=== PATIENT | male | born 1980 | race Caucasian/White ===

== ENCOUNTER 2019-10-27 22:03 | Emergency (ER) | payer OTHER ==
[~2019-10-27] VITALS: Ht 180.3 cm; Wt 113.9 kg
[2019-10-27 22:10] VITALS: BP_SYST 140
[2019-10-27] MEDS ORDERED: NACL 0.9% 1,000 ML IV ONE (23:14)
[2019-10-27 23:48] LABS: BASOPHILS # (AUTO) 0.1 K/uL (0.0-0.2); BASOPHILS % (AUTO) 0.7 % (0.0-2.0); EOSINOPHILS # (AUTO) 0.1 K/uL (0.0-0.4); EOSINOPHILS % (AUTO) 1.4 % (0.0-4.0); HEMATOCRIT 44.9 % (36-54); HEMOGLOBIN 15.2 g/dL (14.0-18.0); LYMPHOCYTES # (AUTO) 4.2 K/uL (1.0-5.5); MEAN CORPUSCULAR HEMOGLOBIN 30 pg (27-31); MEAN CORPUSCULAR HGB CONC 34 % (32-36); MEAN CORPUSCULAR VOLUME 88 fL (79.0-98.0); MONOCYTES # (AUTO) 0.8 K/uL (0.0-1.0); NEUTROPHILS # (AUTO) 4.8 K/uL (1.8-7.7); NEUTROPHILS % (AUTO) 47.9 % (40.0-70.0); PLATELET COUNT (AUTO) 155 K/uL (130-430); RED BLOOD CELL COUNT(AUTO) 5.09 MIL/uL (4.2-6.2); RED CELL DISTRIBUTION WIDTH 13.1 % (9.0-15.0); WHITE BLOOD COUNT (AUTO) 10.1 K/uL (4.8-10.8)
[2019-10-27 23:56] LABS: BILIRUBIN,URINE NEGATIVE (NEGATIVE); BLOOD, URINE 2+ (NEGATIVE); CLARITY/URINE CLEAR (CLEAR); COLOR,URINE YELLOW (YELLOW); GLUCOSE,URINE 3+ (NEGATIVE); KETONES,URINE TRACE (NEGATIVE); LEUKOCYTE ESTERASE ,URINE NEGATIVE (NEGATIVE); NITRITE, URINE NEGATIVE (NEGATIVE); PH,URINE 5.5 (5.0-8.0); PROTEIN URINE NEGATIVE (NEGATIVE); UROBILINOGEN,URINE 0.2 (0.2-1.0)
[2019-10-28 00:02] LABS: ALBUMIN 3.7 g/dL (3.4-4.8); CALCIUM 8.3 mg/dL (8.4-11.0); CREATININE 1.24 mg/dL (0.55-1.30); POTASSIUM 3.7 mmol/L (3.5-5.1); TOTAL BILIRUBIN 0.7 mg/dL (0.0-1.0)
[2019-10-28 00:14] LABS: BACTERIA,URINE FEW /HPF (None Seen); WBC,URINE 0-3 /HPF (0-3)
[2019-10-28] MEDS ORDERED: INSULIN REGULAR, HUMAN 10 UNITS/0.1 ML INJ SUBCUT ONE (00:45)
[2019-10-28 01:11] VITALS: BP_SYST 123
== END 2019-10-28 01:11 | disposition home or self-care (01) ==
LOC: SED 22:03
DX: E11.65 Type 2 diabetes mellitus with hyperglycemia (principal); F17.290 Nicotine dependence, other tobacco product, uncomplicated
CPT/HCPCS: 36415; 80053; 81000; 82962; 83036; 85025; 96360; 96372; 99283; J7030; J1815

== ENCOUNTER 2021-05-24 20:41 | Emergency (ER) | payer OTHER ==
[~2021-05-24] VITALS: Ht 180.3 cm; Wt 95.3 kg
[2021-05-24 21:19] VITALS: BP_SYST 131
--- NOTE | 2021-05-24 21:20 | NUR ---
Patient triaged and placed in waiting room. VSS and patient appears in no acute distress at this time. Accompanied by SELF, awaiting available bed, and MD notified of need for MSE.
--- NOTE | 2021-05-24 23:50 | NUR ---
DR. RUDOLPH AT BEDSIDE FOR MSE.
[2021-05-25] MEDS ORDERED: VANCOMYCIN HCL 1,000 MG in NS 250 ML IV ONE ×2
--- NOTE | 2021-05-25 00:05 | NUR ---
Patient to ER bed 3 to gown for evaluation. Side rails up. Report given to KIERSTEN FUCHS.
--- NOTE | 2021-05-25 00:07 | NUR ---
PATIENT BROUGHT IN COMPLAIING OF RASH TO LEFT ANTERIOR LEG X 3 DAYS. DENIES ANY TRAUMA TO SITE. REDNESS NOTED. REPORTS HAVING FEVER 2 DAYS AGO. ACCUCHECK 520. NO OTHER COMPLAINTS/INJURIES PER PATIENT OR NOTED.
--- NOTE | 2021-05-25 00:10 | NUR ---
# 18 gauge angiocath placed to . Use of asceptic technique. Opsite placed over site. Blood return noted. Blood AND CULTURES for lab drawn from site. Flushed with 10 cc of normal saline. No evidence of infiltration noted. Patient tolerated well.
[2021-05-25] MEDS ORDERED: NACL 0.9% 1,000 ML IV ONE (00:30)
[2021-05-25 00:49] LABS: BASOPHILS # (AUTO) 0.1 K/uL (0.0-0.2); BASOPHILS % (AUTO) 0.7 % (0.0-2.0); EOSINOPHILS # (AUTO) 0.2 K/uL (0.0-0.4); HEMATOCRIT 44.7 % (36-54); HEMOGLOBIN 15.1 g/dL (14.0-18.0); LYMPHOCYTES # (AUTO) 3.3 K/uL (1.0-5.5); LYMPHOCYTES % (AUTO) 33.7 % (20.5-51.5); MEAN CORPUSCULAR HEMOGLOBIN 31 pg (27-31); MEAN CORPUSCULAR HGB CONC 34 % (32-36); MEAN CORPUSCULAR VOLUME 92 fL (79.0-98.0); MONOCYTES % (AUTO) 10.6 % (1.7-9.3); NEUTROPHILS # (AUTO) 5.1 K/uL (1.8-7.7); PLATELET COUNT (AUTO) 163 K/uL (130-430); RED BLOOD CELL COUNT(AUTO) 4.85 MIL/uL (4.2-6.2); RED CELL DISTRIBUTION WIDTH 12.9 % (9.0-15.0); WHITE BLOOD COUNT (AUTO) 9.7 K/uL (4.8-10.8)
[2021-05-25 00:53] LABS: ALANINE AMINOTRANSFERASE 28 U/L (12-78); ALBUMIN 3.5 g/dL (3.4-4.8); ANION GAP 6 (5-15); ASPARTATE AMINOTRANSFERASE 13 U/L (10-37); CALCIUM 9.2 mg/dL (8.4-11.0); CHLORIDE 99 mmol/L (98-107); CREATININE 1.03 mg/dL (0.55-1.30); POTASSIUM 4.2 mmol/L (3.5-5.1); SODIUM SERUM 135 mmol/L (136-145); TOTAL BILIRUBIN 0.4 mg/dL (0.0-1.0); UREA NITROGEN, BLOOD 20 mg/dL (8-21)
[2021-05-25 00:54] LABS: GFR AFRICAN AMERICAN 102 mL/min (>90)
[2021-05-25 00:55] LABS: GLUCOSE 491 mg/dL (70-99)
[2021-05-25] MEDS ORDERED: VANCOMYCIN HCL 500 MG/VIAL IV ONE (00:59)
[2021-05-25 01:01] LABS: ACETONE, SERUM NEGATIVE (NEGATIVE)
--- NOTE | 2021-05-25 01:12 | NUR ---
URINE COLLECTED AND SENT TO LAB
[2021-05-25] MEDS ORDERED: INSULIN REGULAR, HUMAN 10 UNITS/0.1 ML INJ IVP ONE (01:15)
[2021-05-25 02:10] LABS: BILIRUBIN,URINE NEGATIVE (NEGATIVE); BLOOD, URINE 2+ (NEGATIVE); COLOR,URINE YELLOW (YELLOW); GLUCOSE,URINE 3+ (NEGATIVE); KETONES,URINE NEGATIVE (NEGATIVE); LEUKOCYTE ESTERASE ,URINE NEGATIVE (NEGATIVE); NITRITE, URINE NEGATIVE (NEGATIVE); PROTEIN URINE NEGATIVE (NEGATIVE); UROBILINOGEN,URINE 0.2 (0.2-1.0)
[2021-05-25 02:14] LABS: CLARITY/URINE SLIGHTLY CLOUDY (CLEAR)
[2021-05-25 02:35] LABS: BACTERIA,URINE FEW /HPF (None Seen); WBC,URINE 0-3 /HPF (0-3)
--- NOTE | 2021-05-25 02:59 | NUR ---
Patient resting quietly. No acute distress noted. Vital signs within normal range.
--- NOTE | 2021-05-25 03:07 | NUR ---
IV ABX COMPLETED. PATIENT TOLERATED WELL. NOTIFIED. PATIENT PENDING DISCHARGE. REPORT GIVEN TO SHILA HAYES
[2021-05-25] MEDS ORDERED: SULF1TAB48 PO (03:22)
[2021-05-25 03:32] VITALS: BP_SYST 110
--- NOTE | 2021-05-25 03:33 | NUR ---
Patient given written and verbal discharge instructions and verbalizes understanding. DR. RONNI LIRA MD discussed with patient the results and treatment provided. Patient in stable condition. ID arm band removed. IV catheter removed intact and dressing applied, no active bleeding. Rx of BACTRIM given. Patient educated on pain management and to follow up with PMD. Pain Scale 0/10. Opportunity for questions provided and answered. Medication side effect fact sheet provided.
== END 2021-05-25 03:33 | disposition home or self-care (01) ==
LOC: SED 20:41
DX: L03.116 Cellulitis of left lower limb (principal); E11.9 Type 2 diabetes mellitus without complications; Z79.899 Other long term (current) drug therapy
CPT/HCPCS: 36415; 73590; 80053; 81000; 82009; 82962; 83605; 85025; 96365; 96366; 96375; 99284; J1815; J3370; J7030